=== PATIENT | male | born 2000 | race Caucasian/White ===

== ENCOUNTER 2020-10-31 15:15 | Emergency (ER) | payer OTHER ==
[2020-10-31 15:21] VITALS: BP 128/80; PULSE 72; RESP 16; TEMP 99
--- NOTE | 2020-10-31 15:37 | ED ---
Skin/Abscess/FB HPI - General Chief complaint: Skin/Abscess/Foreign Body Stated complaint: Leg infection Time Seen by Provider: 10/31/20 15:24 Source: patient Mode of arrival: ambulatory Limitations: no limitations - History of Present Illness Initial comments: 20-year-old male presents to emergency department with a chief complaint of a rash. Patient reports she noticed a rash today but he was up in the attic several days ago where he believes he could have possibly scratched the skin. Patient reports the rash is not painful but slightly itchy and is located on the medial aspect of the right thigh. He denies any fevers or chills. States initially it was erythematous but then it turned scaly. He denies any discharge from the region. Denies alleviating or aggravating factors. - Related Data Previous Rx's Medication Instructions Recorded Cephalexin [Keflex] 500 mg PO Q6HR #40 cap 10/31/20 Allergies Allergy/AdvReac Type Severity Reaction Status Date / Time No Known Allergies Allergy Verified 10/31/20 15:21 Review of Systems ROS Statement: Those systems with pertinent positive or pertinent negative responses have been documented in the HPI. ROS Other: All systems not noted in ROS Statement are negative. Past Medical History Past Medical History: No Reported History History of Any Multi-Drug Resistant Organisms: None Reported Past Surgical History: No Surgical Hx Reported Past Psychological History: ADD/ADHD Smoking Status: Never smoker Past Alcohol Use History: Daily Past Drug Use History: Marijuana General Exam Limitations: no limitations Course Vital Signs 10/31/20 15:17 Temperature 99.0 F Pulse Rate 72 Respiratory 16 Rate Blood Pressure 128/80 O2 Sat by Pulse 100 Oximetry Medical Decision Making - Medical Decision Making 20-year-old male presents emergency Department with chief complaint of rash. On physical examination, rash is located on the medial aspect of her right thigh. This appears to be a staph infection. Patient will be started on Keflex. Return parameters were discussed with patient was understanding and agreeable. Advised to follow up with the primary care physician. Case discussed with Disposition Clinical Impression: Staph infection Disposition: HOME SELF-CARE Condition: Stable Additional Instructions: Prescribed medications as directed. Return to emergency department if symptoms worsen. Prescriptions: Cephalexin [Keflex] 500 mg PO Q6HR #40 cap Is patient prescribed a controlled substance at d/c from ED?: No Referrals: Raman Sandoval MD [Primary Care Provider] - 1-2 days Time of Disposition: 15:48
== END 2020-10-31 15:52 | disposition home or self-care (01) ==
LOC: EC 15:15
DX: R21 Rash and other nonspecific skin eruption (principal); B95.8 Unspecified staphylococcus as the cause of diseases classified elsewhere; F12.90 Cannabis use, unspecified, uncomplicated
CPT/HCPCS: 99282